=== PATIENT | female | born 1940 | race Caucasian/White ===

== ENCOUNTER 2016-03-15 07:34 | Observation (INO) | payer MEDICARE, OTHER ==
[2016-03-11 08:56] VITALS: BMI 29.0
[2016-03-15] MEDS ORDERED: Iodixanol 320 mg/ml 150 ml Bottle IV ONE ×2 (09:02→09:07)
[2016-03-15] MEDS ORDERED: Lidocaine 2% Inj (20ml) ONE ×2 (09:03→09:06)
[2016-03-15] MEDS ORDERED: Midazolam 2 MG/2 ML VIAL ONE (09:06)
[2016-03-15] MEDS ORDERED: Nitroglycerin 50mg in D5W 250 ML IV ONE (09:43)
[2016-03-15] MEDS ORDERED: DOPamine 400mg/250ml D5W 250 ML IV ONE (10:00)
[2016-03-15] MEDS ORDERED: Phenylephrine 10 mg/ml Inj ONE ×2 (10:21→10:22)
[2016-03-15] MEDS ORDERED: DiphenhydrAMINE 50 mg/ml Inj ONE (10:28)
--- NOTE | 2016-03-15 12:15 | CP.PCM.CON ---
<Nicole Bruno - Last Filed: 03/15/16 12:29> History of Present Illness - History of Present Illness History of Present Illness: Critical care consult for Dr. Girma Bruno, PGY-1 Pt S & E at bedside. 76F w/extensive PMH admitted to ICU s/p cardiac cath w/hypotension. Pt w/hx of chest tightening, had EKG, echo, stress test, then was sent to cardiac cath for final diagnosis- found to have vasospasm. Pt given cardiac medications, became hypotensive. Admitted to ICU for further mgmt. Admits to diarrhe (chronic, intermittent), feels sleepy. Denies N/V/F/C, SOB,chest pain, abdominal pain, headache, vision changes, dizziness, constipation, changes in urination, dysuria , hematuria, hematochezia, numbness or tingling of extremities, changes in weight , fatigue. PMH: DM, HTN, HLD, intermittent diarrhea, hx colon CA, asthma, arthritis, hernia PSH: Colon resection, cholecystectomy, hemorrhoidectomy All: Cherries (swellling) SH: Denies tobacco, ETOH, or illicit drug use or history. Polish speaking only. PMD: Review of Systems - Review of Systems All systems: reviewed and no additional remarkable complaints except - Constitutional Constitutional: absent: Chills, Fatigue, Fever, Headache, Weight Gain, Weight Loss - EENT Eyes: absent: Change in Vision Ears: absent: Dizziness Nose/Mouth/Throat: absent: Sore Throat - Cardiovascular Cardiovascular: absent: Chest Pain, Lightheadedness - Respiratory Respiratory: absent: Cough - Gastrointestinal Gastrointestinal: Diarrhea (chronic, intermittent). absent: Abdominal Pain, Hematemesis, Hematochezia, Melena, Nausea, Vomiting - Genitourinary Genitourinary: absent: Change in Urinary Stream, Hematuria - Musculoskeletal Musculoskeletal: absent: Numbness, Tingling - Neurological Neurological: absent: Dizziness, Numbness, Headaches, Tingling, Weakness Past Patient History - Past Medical History & Family History Past Medical History?: Yes - CARDIAC Hx Cardiac Disorders: Yes Hx Hypercholesterolemia: Yes Hx Hypertension: Yes Hx Peripheral Edema: Yes - PULMONARY Hx Respiratory Disorders: Yes (SOB) - NEUROLOGICAL Hx Neurological Disorder: Yes Hx Dizziness: Yes - HEENT Hx HEENT Problems: Yes Hx Cataracts: Yes - RENAL Hx Chronic Kidney Disease: No - ENDOCRINE/METABOLIC Hx Endocrine Disorders: Yes Hx Diabetes Mellitus Type 2: Yes - HEMATOLOGICAL/ONCOLOGICAL Hx Blood Disorders: Yes Hx Cancer: Yes (COLON) Hx Chemotherapy: Yes (2009) - MUSCULOSKELETAL/RHEUMATOLOGICAL Hx Musculoskeletal Disorders: Yes Hx Osteoarthritis: Yes - GASTROINTESTINAL Hx Gastrointestinal Disorders: Yes Hx Gall Bladder Disease: Yes Hx Hemorrhoids: Yes Other/Comment: COLON CANCER 2009 - SURGICAL HISTORY Hx Surgeries: Yes Hx Cholecystectomy: Yes Other/Comment: COLECTOMY HEMORRHOIDECTOMY - ANESTHESIA Hx Anesthesia: Yes Hx Anesthesia Reactions: No Hx Malignant Hyperthermia: No Has any member of the family had a problem w/ anesthesia?: No Meds Allergies/Adverse Reactions: Allergies Allergy/AdvReac Type Severity Reaction Status Date / Time Penicillins Allergy RASH Verified 03/11/16 08:57 - Medications Medications: Current Medications Acetaminophen (Tylenol 325mg Tab) 650 mg PO Q6 PRN PRN Reason: Pain, moderate (4-7) Aspirin (Aspirin Chewable) 81 mg PO DAILY [facility] Famotidine (Pepcid) 20 mg PO Q12 [facility] Heparin Sodium (Porcine) (Heparin) 5,000 units SC Q8 [facility] Sodium Chloride (Sodium Chloride 0.9%) 1,000 mls @ 100 mls/hr IV .Q10H [facility] Insulin Human Regular (Novolin R) 0 unit SC Q6H [facility] PRN Reason: Protocol Rosuvastatin Calcium (Crestor) 5 mg PO HS [facility] Physical Exam - Constitutional Appears: Non-toxic, No Acute Distress - Head Exam Head Exam: ATRAUMATIC, NORMAL INSPECTION, NORMOCEPHALIC - Eye Exam Eye Exam: EOMI, Normal appearance Pupil Exam: NORMAL ACCOMODATION, PERRL - ENT Exam ENT Exam: Mucous Membranes Moist, Normal Exam - Neck Exam Neck exam: Positive for: Full Rom, Normal Inspection - Respiratory Exam Respiratory Exam: Clear to Auscultation Bilateral, NORMAL BREATHING PATTERN. absent: Accessory Muscle Use, Chest Wall Tenderness, Rales, Rhonchi, Wheezes, Respiratory Distress - Cardiovascular Exam Cardiovascular Exam: REGULAR RHYTHM, +S1, +S2 - GI/Abdominal Exam GI & Abdominal Exam: Normal Bowel Sounds, Soft. absent: Distended, Firm, Tenderness - Extremities Exam Extremities exam: Positive for: normal inspection - Neurological Exam Neurological exam: Alert, CN II-XII Intact - Psychiatric Exam Psychiatric exam: Normal Affect, Normal Mood - Skin Skin Exam: Dry, Intact, Normal Color, Warm Results - Vital Signs Recent Vital Signs: Last Vital Signs Temp 97.2 F L 03/15/16 08:03 Pulse 63 03/15/16 08:03 Resp 20 03/15/16 08:03 BP 144/76 03/15/16 08:03 Pulse Ox 97 03/15/16 08:03 - Labs Labs: Laboratory Results - last 24 hr 03/15/16 08:45 PT 11.5 INR 1.0 APTT 29 Assessment & Plan - Assessment and Plan (Free Text) Assessment: 76F w/hypotension s/p cardiac cath and administration of cardiac medications. Admitted to ICU for observation and mgmt. Plan: Neuro Awake Alert Stable Monitor CVS HR WNL ASA Crestor Cardiology following Pulm O2 via NC Stable Monitor Nephro NS@100 Monitor GI Heart healthy/diabetic diet Monitor Voids on own Monitor UOP Endo DM Sugar WNL ISS Accuchecks MSK Dry Intact ID Afebrile GI/DVT ppx Heparin to start at 6pm Pepcid SCDs Dispo: Obs ICU Possible Cardizem 30mg Q8H if needed later Plan for DC in AM Full code as DW pt DW attending - Date & Time Date: 03/15/16 Time: 12:22 <Cesilia Aiken - Last Filed: 03/15/16 15:05> History of Present Illness - History of Present Illness History of Present Illness: This is a 76 year old female with pmh of HTN, DM comes to the hospital for cardiac catheterization, clean coronaries with vasospasm, when she received nitroglycerine her bp dropped in the 60's and was started on neosynephrine. No further need or neosynephrine drip, no sob, no cp. Had some sob while at the [employer]. Will start on cardizem as tolerated, start with low dose. Meds - Medications Medications: Current Medications Acetaminophen (Tylenol 325mg Tab) 650 mg PO Q6 PRN PRN Reason: Pain, moderate (4-7) Aspirin (Aspirin Chewable) 81 mg PO DAILY [facility] Last Admin: 03/15/16 12:48 Dose: 81 mg Famotidine (Pepcid) 20 mg PO Q12 [facility]ANJ[facility] Last Admin: 03/15/16 12:49 Dose: 20 mg Heparin Sodium (Porcine) (Heparin) 5,000 units SC Q8 RANJIT Sodium Chloride (Sodium Chloride 0.9%) 1,000 mls @ 100 mls/hr IV .Q10H [facility] Last Admin: 03/15/16 12:25 Dose: 100 mls/hr Insulin Human Regular (Novolin R) 0 unit SC Q6H [facility] PRN Reason: Protocol Last Admin: 03/15/16 12:21 Dose: Not Given Rosuvastatin Calcium (Crestor) 5 mg PO HS [facility] Results - Vital Signs Recent Vital Signs: Last Vital Signs Temp 97.2 F L 03/15/16 08:03 Pulse 63 03/15/16 08:03 Resp 20 03/15/16 08:03 BP 144/76 03/15/16 08:03 Pulse Ox 97 03/15/16 08:03 - Labs Labs: Laboratory Results - last 24 hr 03/15/16 03/15/16 08:45 11:55 PT 11.5 INR 1.0 APTT 29 POC Glucose (mg/dL) 117 H
[2016-03-15] MEDS: (Novolin R) Insulin Human Regular 100 units/ml vial SC SCH ×3 (12:21→22:20)
[2016-03-15] MEDS: Sodium Chloride 0.9% 1,000 ML IV SCH ×2 (12:25→22:46)
--- NOTE | 2016-03-15 12:27 | CP.PCM.HP ---
<Nicole Bruno - Last Filed: 03/15/16 12:29> History of Present Illness - History of Present Illness History of Present Illness: H & P for Dr. Rahul Bruno, PGY-1 Pt S & E at bedside. 76F w/extensive PMH admitted to ICU s/p cardiac cath w/hypotension. Pt w/hx of chest tightening, had EKG, echo, stress test, then was sent to cardiac cath for final diagnosis- found to have vasospasm. Pt given cardiac medications, became hypotensive. Admitted to ICU for further mgmt. Admits to diarrhe (chronic, intermittent), feels sleepy. Denies N/V/F/C, SOB,chest pain, abdominal pain, headache, vision changes, dizziness, constipation, changes in urination, dysuria , hematuria, hematochezia, numbness or tingling of extremities, changes in weight , fatigue. PMH: DM, HTN, HLD, intermittent diarrhea, hx colon CA, asthma, arthritis, hernia PSH: Colon resection, cholecystectomy, hemorrhoidectomy All: Cherries (swellling) SH: Denies tobacco, ETOH, or illicit drug use or history. Zambian speaking only. PMD: Present on Admission - Present on Admission Any Indicators Present on Admission: No History of DVT/PE: No History of Uncontrolled Diabetes: No Urinary Catheter: No Decubitus Ulcer Present: No Review of Systems - Review of Systems All systems: reviewed and no additional remarkable complaints except - Constitutional Constitutional: absent: Fatigue, Fever, Headache, Weight Gain, Weight Loss, Weakness - EENT Eyes: absent: Change in Vision Nose/Mouth/Throat: absent: Sore Throat - Cardiovascular Cardiovascular: absent: Chest Pain - Respiratory Respiratory: absent: Cough - Gastrointestinal Gastrointestinal: absent: Abdominal Pain, Hematemesis, Hematochezia, Melena, Nausea, Vomiting - Genitourinary Genitourinary: absent: Change in Urinary Stream - Musculoskeletal Musculoskeletal: absent: Numbness, Tingling - Neurological Neurological: absent: Numbness, Headaches, Tingling, Weakness Past Patient History - Past Medical History & Family History Past Medical History?: Yes - CARDIAC Hx Cardiac Disorders: Yes Hx Hypercholesterolemia: Yes Hx Hypertension: Yes Hx Peripheral Edema: Yes - PULMONARY Hx Respiratory Disorders: Yes (SOB) - NEUROLOGICAL Hx Neurological Disorder: Yes Hx Dizziness: Yes - HEENT Hx HEENT Problems: Yes Hx Cataracts: Yes - RENAL Hx Chronic Kidney Disease: No - ENDOCRINE/METABOLIC Hx Endocrine Disorders: Yes Hx Diabetes Mellitus Type 2: Yes - HEMATOLOGICAL/ONCOLOGICAL Hx Blood Disorders: Yes Hx Cancer: Yes (COLON) Hx Chemotherapy: Yes (2009) - MUSCULOSKELETAL/RHEUMATOLOGICAL Hx Musculoskeletal Disorders: Yes Hx Osteoarthritis: Yes - GASTROINTESTINAL Hx Gastrointestinal Disorders: Yes Hx Gall Bladder Disease: Yes Hx Hemorrhoids: Yes Other/Comment: COLON CANCER 2009 - SURGICAL HISTORY Hx Surgeries: Yes Hx Cholecystectomy: Yes Other/Comment: COLECTOMY HEMORRHOIDECTOMY - ANESTHESIA Hx Anesthesia: Yes Hx Anesthesia Reactions: No Hx Malignant Hyperthermia: No Has any member of the family had a problem w/ anesthesia?: No Meds Allergies/Adverse Reactions: Allergies Allergy/AdvReac Type Severity Reaction Status Date / Time young Allergy SWELLING Verified 03/15/16 15:00 Iodinated Contrast Media - Allergy ANAPHYLAXIS Verified 03/16/16 09:45 Oral and Penicillins Allergy RASH Verified 03/11/16 08:57 Physical Exam - Constitutional Appears: Non-toxic, No Acute Distress - Head Exam Head Exam: ATRAUMATIC, NORMAL INSPECTION, NORMOCEPHALIC - Eye Exam Eye Exam: EOMI, Normal appearance, PERRL Pupil Exam: NORMAL ACCOMODATION, PERRL - ENT Exam ENT Exam: Mucous Membranes Moist, Normal Exam - Neck Exam Neck exam: Positive for: Full Rom, Normal Inspection - Respiratory Exam Respiratory Exam: Clear to Auscultation Bilateral, NORMAL BREATHING PATTERN. absent: Accessory Muscle Use, Chest Wall Tenderness, Rales, Rhonchi, Wheezes - Cardiovascular Exam Cardiovascular Exam: REGULAR RHYTHM, +S1, +S2 - GI/Abdominal Exam GI & Abdominal Exam: Normal Bowel Sounds, Soft. absent: Distended, Firm, Guarding - Extremities Exam Extremities exam: Positive for: normal inspection. Negative for: pedal edema - Neurological Exam Neurological exam: Alert, CN II-XII Intact, Oriented x3 - Psychiatric Exam Psychiatric exam: Normal Affect, Normal Mood - Skin Skin Exam: Dry, Intact, Normal Color, Warm Results - Vital Signs Recent Vital Signs: Last Vital Signs Temp 97.2 F L 03/15/16 08:03 Pulse 63 03/15/16 08:03 Resp 20 03/15/16 08:03 BP 144/76 03/15/16 08:03 Pulse Ox 97 03/15/16 08:03 - Labs Labs: Laboratory Results - last 24 hr 03/15/16 03/15/16 08:45 11:55 PT 11.5 INR 1.0 APTT 29 POC Glucose (mg/dL) 117 H Assessment & Plan - Assessment and Plan (Free Text) Assessment: 76F w/PMH sig for DM, HTN, HLD, intermittent diarrhea, hx colon CA, asthma, arthritis, hernia admitted to hospital ICU 2/2 hypotension s/p cardiac cath and administration of cardiac medications. Pt currently stable, w/o complaints- sleepy, will continue ICU care overnight. Plan: Neuro Awake Alert Stable Monitor CVS HR WNL ASA Crestor Cardiology following Pulm O2 via NC Stable Monitor Nephro NS@100 Monitor GI Heart healthy/diabetic diet Monitor Voids on own Monitor UOP Endo DM Sugar WNL ISS Accuchecks MSK Dry Intact ID Afebrile GI/DVT ppx Heparin to start at 6pm Pepcid SCDs Dispo: Obs ICU Possible Cardizem 30mg Q8H if needed later Plan for DC in AM Full code as DW pt DW attending - Date & Time Date: 03/15/16 Time: 12:26 <Violetta Davis V - Last Filed: 03/16/16 22:30> Results - Vital Signs Recent Vital Signs: Last Vital Signs Temp 97.7 F 03/16/16 12:00 Pulse 68 03/16/16 12:00 Resp 16 03/16/16 12:00 BP 134/69 03/16/16 12:00 Pulse Ox 99 03/16/16 12:00 - Labs Labs: Laboratory Results - last 24 hr 03/16/16 03/16/16 07:42 11:46 POC Glucose (mg/dL) 136 H 112 H Assessment & Plan (1) Coronary vasospasm Status: Acute (2) Allergic reaction Status: Acute (3) Hypertension Status: Chronic (4) Insulin dependent diabetes mellitus Status: Chronic (5) Colon cancer Status: Chronic Attending/Attestation - Attestation I have personally seen and examined this patient.: Yes I have fully participated in the care of the patient.: Yes I have reviewed all pertinent clinical information: Yes Notes (Text): Patient seen, examined and case discussed with intenvist and can coverer. Patient stabilized by ICU and transferred to telemetry awaiting telemetry bed. Note: Resident has spoken with the ICU attending regarding admitting orders. Discussed case with Dr. Bang today-->patient for cardiac catherization, where in coronary vasospasm, clean coronaries and associated allergic reaction to contrast dye, which to ICU on pressors for subsequent hypotension and monitored in the intensive care unit wherein weaned off pressors; and started on Cardizem low dose and given Solumedrol IV X1 for allergic reaction, admitted under the hospitalist service for observation given events in cardiac catherization. Discussed with ICU doctor, who reports patient is doing better off the pressors and hemodynamically stable. Please see discharge summary for further details regarding discharge.
[2016-03-15] MEDS ORDERED: Enoxaparin 30 mg Syringe SC SCH (22:00)
[2016-03-16] MEDS: (Novolin R) Insulin Human Regular 100 units/ml vial SC SCH (07:30)
[2016-03-16] MEDS: Sodium Chloride 0.9% 1,000 ML IV SCH (07:45)
--- NOTE | 2016-03-16 09:20 | CP.PCM.DIS ---
Provider - Provider Date of Admission: 03/15/16 11:32 Attending physician: Kal Boateng MD Consults: Dr. Bang Time Spent in preparation of Discharge (in minutes): 31 Diagnosis - Discharge Diagnosis (1) Coronary vasospasm Status: Acute Comment: Resolved. Patient recommended to discontinue Metropolol which may further excacerbate coronary vasospasm. Cardiology recommended for Cardizem CD 120mg PO daily in lieu. Patient to follow-up with private ocean export agent, Dr. Martinez within one week of discharge. (2) Allergic reaction Status: Acute Comment: Patient given Solumedrol during procedure. Patient noted for allergic reaction to contrast dye. Spoke with daughter and patient to note this contrast dye in the future. Patient to be give Medrol dose pack (). (3) Hypertension Status: Chronic Comment: discontinue Metoprolol. Start Cardizem CD 120mg PO daily. Continue Valsartan/HCTZ. Recommended for low salt diet (4) Insulin dependent diabetes mellitus Status: Chronic Comment: To restart Metformin tomorrow (5) Colon cancer Status: Chronic Hospital Course - Lab Results Lab Results: Most Recent Lab Values PT 11.5 SECONDS (9.7-12.2) 03/15/16 08:45 INR 1.0 03/15/16 08:45 APTT 29 SECONDS (21-34) 03/15/16 08:45 POC Glucose (mg/dL) 136 mg/dL (65-110) H 03/16/16 07:42 - Hospital Course Hospital Course: As per H&P, "76F w/extensive PMH admitted to ICU s/p cardiac cath w/hypotension. Pt w/hx of chest tightening, had EKG, echo, stress test, then was sent to cardiac cath for final diagnosis- found to have vasospasm. Pt given cardiac medications, became hypotensive. Admitted to ICU for further mgmt. Admits to diarrhe (chronic, intermittent), feels sleepy. Denies N/V/F/C, SOB,chest pain, abdominal pain, headache, vision changes, dizziness, constipation, changes in urination, dysuria , hematuria, hematochezia, numbness or tingling of extremities, changes in weight , fatigue. PMH: DM, HTN, HLD, intermittent diarrhea, hx colon CA, asthma, arthritis, hernia PSH: Colon resection, cholecystectomy, hemorrhoidectomy All: Cherries (swellling) SH: Denies tobacco, ETOH, or illicit drug use or history. Georgian speaking only. PMD: Dr. Styles" Patient completed cardiac catherization, had observed coronary vasospasm and allergic reactio, hemodynamic instability which was stablized and subsequently observed and stablized in the intensive care unit. Patient hemodynamically stable prior to discharge. Patient had allergic reaction to contrast dye (which is new) for the patient and treated accordingly. Patient doing well day of discharge. No acute complaints. Discussed with cardiology, patient is stable for discharge today. Following Cardiac recommendations: 1) Discontinue Metoprol SE. vasospasm 2) Start Cardizem CD 120mg Po daily 3) Recommend to see Dr. Martinez, patient's private ocean export agent within one week of discharge. 4) Allergy to contrast dye; discussed with patient's daughter, Arabella Colon and patient and patient in terms of future procedures and CT scan to prevent further allergic reactions 5) Update EMR to reflect allergy to contrast dye. Discussed discharge instructions with both daughter and patient. Verbalized understanding and agree. Discharge instructions: 1) Restart Metformin tomorrow (recommended wait 24-48 hours after cardiac catherization) 2) Discontinue Metoprol SE. vasospasm 3) Start Cardizem CD 120mg Po daily 4) Recommend to see Dr. Martinez, patient's private ocean export agent within one week of discharge. 5) Allergy to contrast dye; discussed with patient's daughter and patient in terms of future procedures and CT scan 6) Medrol dose pack for allergic reaction; with Benadryl OTC to reduce itchiness. This is a summary of patient's hospitalization. Please review EMR for further discussions. - Date & Time of H&P Date of H&P: 03/15/16 Time of H&P: 12:47 Discharge Exam - Head Exam Head Exam: ATRAUMATIC, NORMAL INSPECTION, NORMOCEPHALIC - Eye Exam Eye Exam: EOMI - ENT Exam ENT Exam: Mucous Membranes Moist - Respiratory Exam Respiratory Exam: Clear to PA & Lateral. absent: Rales, Rhonchi, Wheezes - Cardiovascular Exam Cardiovascular Exam: REGULAR RHYTHM, +S1, +S2 - GI/Abdominal Exam GI & Abdominal Exam: Normal Bowel Sounds, Soft. absent: Distended, Firm, Guarding, Rebound, Rigid, Tenderness - Extremities Exam Extremities exam: pedal pulses present - Neurological Exam Neurological exam: Alert, Oriented x3 - Psychiatric Exam Psychiatric exam: Normal Affect, Normal Mood - Skin Skin Exam: Dry, Normal Color, Warm Additional comments: mild swelling over right hand; no observed rash Discharge Plan - Discharge Medications Prescriptions: diltiaZEM CD [Cardizem CD] 120 mg PO DAILY #30 c24 - Follow Up Plan Condition: GOOD Disposition: HOME/ ROUTINE Patient education suggested?: Yes Referrals: Jennifer Styles MD [Staff Provider] - Kayden Martinez MD [Staff Provider] - 1 Week (Recommended to see in one week.)
[2016-03-16 15:35] VITALS: BP 134/69; PULSE 68; RESP 16; TEMP 97.7; O2SAT 99
--- NOTE | 2016-03-16 18:32 | CP.PCM.PN ---
Subjective - Date & Time of Evaluation Date of Evaluation: 03/16/16 Time of Evaluation: 07:35 - Subjective Subjective: Patient s/p Cath S/P Contrast allergy and Hypotension Patient hemodynamically stable Denies chest pain and dyspnea PMH: DM, HTN, HLD, intermittent diarrhea, hx colon CA, asthma, arthritis, hernia PSH: Colon resection, cholecystectomy, hemorrhoidectomy All: Cherries (swellling) SH: Denies tobacco, ETOH, or illicit drug use or history. Korean speaking only. PMD: Present on Admission - Present on Admission Any Indicators Present on Admission: No History of DVT/PE: No History of Uncontrolled Diabetes: No Urinary Catheter: No Decubitus Ulcer Present: No Review of Systems - Review of Systems All systems: reviewed and no additional remarkable complaints except - Constitutional Constitutional: absent: Fatigue, Fever, Headache, Weight Gain, Weight Loss, Weakness - EENT Eyes: absent: Change in Vision Nose/Mouth/Throat: absent: Sore Throat - Cardiovascular Cardiovascular: absent: Chest Pain - Respiratory Respiratory: absent: Cough - Gastrointestinal Gastrointestinal: absent: Abdominal Pain, Hematemesis, Hematochezia, Melena, Nausea, Vomiting - Genitourinary Genitourinary: absent: Change in Urinary Stream - Musculoskeletal Musculoskeletal: absent: Numbness, Tingling - Neurological Neurological: absent: Numbness, Headaches, Tingling, Weakness Physical Exam - Constitutional Appears: Non-toxic, No Acute Distress - Head Exam Head Exam: ATRAUMATIC, NORMAL INSPECTION, NORMOCEPHALIC - Eye Exam Eye Exam: EOMI, Normal appearance, PERRL Pupil Exam: NORMAL ACCOMODATION, PERRL - ENT Exam ENT Exam: Mucous Membranes Moist, Normal Exam - Neck Exam Neck exam: Positive for: Full Rom, Normal Inspection - Respiratory Exam Respiratory Exam: Clear to Auscultation Bilateral, NORMAL BREATHING PATTERN. absent: Accessory Muscle Use, Chest Wall Tenderness, Rales, Rhonchi, Wheezes - Cardiovascular Exam Cardiovascular Exam: REGULAR RHYTHM, +S1, +S2 - GI/Abdominal Exam GI & Abdominal Exam: Normal Bowel Sounds, Soft. absent: Distended, Firm, Guarding - Extremities Exam Extremities exam: Positive for: normal inspection. Negative for: pedal edema - Neurological Exam Neurological exam: Alert, CN II-XII Intact, Oriented x3 - Psychiatric Exam Psychiatric exam: Normal Affect, Normal Mood - Skin Skin Exam: Dry, Intact, Normal Color, Warm Objective - Vital Signs/Intake and Output Vital Signs (last 24 hours): Temp Pulse Resp BP Pulse Ox 97.7 F 68 16 134/69 99 03/16/16 12:00 03/16/16 12:00 03/16/16 12:00 03/16/16 12:00 03/16/16 12:00 Intake and Output: 03/16/16 03/16/16 06:59 18:59 Intake Total 1680 Output Total 690 Balance 990 - Labs Labs: PT 11.5 SECONDS (9.7-12.2) 03/15/16 08:45 INR 1.0 03/15/16 08:45 APTT 29 SECONDS (21-34) 03/15/16 08:45 Assessment and Plan - Assessment and Plan (Free Text) Assessment: 1. Caronary Vasospasm: D/C Metoprolol Start Cardizem CD 120 po daily 2. HTN 3. Contrast Allergy Cleared for D/C today F/U with Dr. Martinez in 1 week Instructions given to Patient's daughter
--- NOTE | 2016-03-17 07:28 | CARDCATH ---
PROCEDURE DATE: 03/15/2016 PROCEDURES: 1. Left heart catheterization. 2. Coronary angiogram. CLINICAL INDICATIONS: 1. Angina. 2. Diabetes. 3. Hypertension. 4. Hyperlipidemia. 5. Abnormal stress test. REFERRING PHYSICIAN: Dr. Kayden Martinez. PERFORMING PHYSICIAN: Dr. Hilton Bang. PROCEDURE: After informed consent, patient was prepped and draped in the usual sterile fashion. A 2% lidocaine was given in the right groin for local anesthesia. Using micropuncture technique, 6-[place] sheath wa s introduced into right common femoral artery. Using the usual diagnostic catheter, left heart catheterization and coronary angiogram was performed. Towards the end of the procedure, the patient developed a rash on the chest and hypotension, which is probably secondary to CONTRAST ALLERGY. The patient was given IV Solu-Medrol, IV Benadryl, and I V Pepcid. The patient's rash improved; however, remained hypotensive. The patient required phenylep hrine drip to maintain the blood pressure. The patient subsequently transferred to ICU for further o bservation. FINDINGS OF THE LEFT HEART CATHETERIZATION AND CORONARY ANGIOGRAM: 1. Left main coronary artery is patent. 2. LAD and diagonal branches are patent. 3. Left circumflex has a coronary vasospasm in the ostial region. This vasospasm relieved with intra coronary nitroglycerin. However, left circumflex coronary artery and obtuse marginal branches are pa tent. 4. Right coronary artery had a proximal 50% stenosis. Mid and distal right coronary artery is patent . There is a brisk BRADLEY 3 flow in the entire right coronary artery system. 5. LV ejection fraction is approximately 80%. Hyperdynamic heart. No gradient across the aortic calvin ve. EDP is 10. CONCLUSION: 1. Patent coronaries. 2. Coronary vasospastic disease. 3. Iodinated contrast allergy. RECOMMENDATIONS: 1. Discontinue metoprolol and start the patient on p.o. Cardizem due to coronary vasospastic disease . 2. The patient has a CONTRAST ALLERGY, needs to be documented. Hilton Bang MD cc: [id number] TT: 03/17/2016 07:27:36 hn
--- NOTE | 2016-03-22 19:10 | CARD ---
APPROVED REPORT EKG Measurement Heart [id number] <Conclusion> Normal sinus rhythm Normal ECG
== END 2016-03-16 13:10 | disposition home or self-care (01) ==
LOC: C.CATHLAB 07:34 → INTOOBSV 11:32 → C.9I 11:32
PROVIDERS: ADMIT Internal Medicine; ATTEND Internal Medicine
DX: I25.111 Atherosclerotic heart disease of native coronary artery with angina pectoris with documented spasm (principal); I95.2 Hypotension due to drugs; T50.8X5A Adverse effect of diagnostic agents, initial encounter; E11.9 Type 2 diabetes mellitus without complications; I10 Essential (primary) hypertension; J45.909 Unspecified asthma, uncomplicated; M19.90 Unspecified osteoarthritis, unspecified site; Y92.238 Other place in hospital as the place of occurrence of the external cause; E78.5 Hyperlipidemia, unspecified; E78.00 Pure hypercholesterolemia, unspecified; H26.9 Unspecified cataract; Z90.49 Acquired absence of other specified parts of digestive tract; Z85.038 Personal history of other malignant neoplasm of large intestine; Z88.0 Allergy status to penicillin; Z79.4 Long term (current) use of insulin
CPT/HCPCS: 36415; 82948; 85610; 85730; 93005; 93458; 94770; C1758; C1769; C1887; G0378; J0360; J1200; J1265; J1644; J2250; J2370; J2405; J2930; J3010; J7040; Q9965